=== PATIENT | male | born 1990 | race Caucasian/White ===

== ENCOUNTER 2022-02-28 20:08 | Emergency (ER) | payer MEDICAID ==
[~2022-02-28] VITALS: Ht 177.8 cm; Wt 90.7 kg
--- NOTE | 2022-02-28 20:13 | NUR ---
PT EMILY GUZMÁN. AMBULATED WITHOUT ASSISTANCE FROM EMS GURNEY TO ER BED 2
[2022-02-28 20:14] VITALS: BP 145/79
[2022-02-28] MEDS ORDERED: IBUPROFEN 800 MG TAB PO ONE (20:45)
[2022-02-28] MEDS ORDERED: LIDOCAINE MPF 1% 10 MG/ML VIAL INJ ONE (20:45)
[2022-02-28] MEDS ORDERED: cephALEXin 500 MG CAP PO ONE (20:45)
--- NOTE | 2022-02-28 21:00 | NUR ---
LAB AT BEDSIDE
[2022-02-28 21:12] LABS: BASOPHILS # (AUTO) 0.2 K/uL (0.00-0.22); BASOPHILS % (AUTO) 1.7 % (0.0-2.0); EOSINOPHILS # (AUTO) 0.2 K/uL (0-0.4); EOSINOPHILS % (AUTO) 2.3 % (0.0-4.0); HEMATOCRIT 37.9 % (36-52); HEMOGLOBIN 13.1 g/dL (12.0-18.0); LYMPHOCYTES % (AUTO) 10.4 % (20.5-51.1); MEAN CORPUSCULAR HEMOGLOBIN 29 pg (27-31); MEAN CORPUSCULAR HGB CONC 35 g/dL (33-37); MEAN CORPUSCULAR VOLUME 82.2 fL (80-94); MONOCYTES # (AUTO) 0.8 K/uL (0.8-1.0); NEUTROPHILS # (AUTO) 7.7 K/uL (1.8-7.7); NEUTROPHILS % (AUTO) 77.6 % (42.2-75.2); PLATELET COUNT (AUTO) 193 K/uL (140-450); RED BLOOD CELL COUNT(AUTO) 4.61 MIL/uL (4.20-6.10); RED CELL DISTRIBUTION WIDTH 13.3 % (11.6-13.7); WHITE BLOOD COUNT (AUTO) 9.9 K/uL (4.8-10.8)
[2022-02-28 21:49] LABS: ALBUMIN 3.5 g/dL (3.4-5.0); ANION GAP 8.8 (8-16); CARBON DIOXIDE 29.8 mmol/L (21-32); CREATININE 0.9 mg/dL (0.6-1.3); POTASSIUM 3.6 mmol/L (3.5-5.1); TOTAL BILIRUBIN 0.7 mg/dL (0.0-1.0)
--- NOTE | 2022-02-28 23:00 | NUR ---
31/M AAOX4, HOMELESS. BIBA C/O RIGHT LOWER LEG PAIN. PATIENT STATED THAT HE HAS A HX USING METH AND HEROIN WHILE REUSING NEEDLES. PATIENT STATED THAT PAIN IS 10/10 AND SHARP WHEN AMBULATING. LOWER LEG HAS REDNESS AND SOME SWELLING. PATIENT DENIES FEVER/SOB/CP/N/V/C/D AT THIS TIME. PATIENT PLACED IN A GOWN AND NONSLIP SOCKS. BED LOW AND LOCKED, REGINE SIDE RAILS UP FOR SAFETY. LIGHTS OFF AND COVERED FOR COMFORT. ALL NEEDS MET. PMHX DRUG ABUSE NKA
--- NOTE | 2022-02-28 23:45 | NUR ---
Dr. Euceda examining patient.
[2022-02-28] MEDS ORDERED: SULF-59 PO (23:49)
[2022-02-28] MEDS ORDERED: CEPH-588 PO (23:49)
[2022-02-28] MEDS ORDERED: IBUP-2218 PO (23:49)
[2022-02-28] MEDS ORDERED: SULFAMETH/TRIMETH DS 800/160MG 1 TAB PO ONE (23:50)
--- NOTE | 2022-03-01 01:25 | NUR ---
PATIENT RESTING IN BED, VSS, BED LOCKED AND LOW. REGINE SIDE RAILS UP FOR SAFETY. ALL NEEDS MET
--- NOTE | 2022-03-01 03:25 | NUR ---
PATIENT IN BED RESTING. BED LOW AND LOCKED. REGINE SIDE RAILS UP FOR SAFETY. ALL NEEDS MET.
[2022-03-01 04:48] VITALS: BP 121/59
--- NOTE | 2022-03-01 04:48 | NUR ---
Patient discharged with v/s stable. Written and verbal after care instructions given skin abscess and explained. Patient alert, oriented and verbalized understanding of instructions. Ambulatory with steady gait. All questions addressed prior to discharge. ID band removed. Patient advised to follow up with PMD. Rx of Keflex, Bactrium DS, and Ibuprofen given.
== END 2022-03-01 04:48 | disposition home or self-care (01) ==
LOC: MED 20:08
DX: L03.114 Cellulitis of left upper limb (principal); L02.611 Cutaneous abscess of right foot; Z79.1 Long term (current) use of non-steroidal anti-inflammatories (NSAID); Z79.2 Long term (current) use of antibiotics
CPT/HCPCS: 10060; 36415; 80053; 85025; 90471; 90715; 99285; J2001

== ENCOUNTER 2022-03-17 03:50 | Emergency (ER) | payer MEDICAID ==
[~2022-03-17] VITALS: Ht 180.3 cm; Wt 81.6 kg
[~2022-03-17 03:50] MED LIST: CEPH-588 PO; IBUP-2218 PO; SULF-59 PO
--- NOTE | 2022-03-17 04:00 | NUR ---
BIBA WITH C/O VOMITING X APPROX 30. ADMITS TO METH AND HEROINE USE, STATES HE THINKS THE DRUGS WERE LACED WITH VERSED. WAS SEEN HERE 2 WEEKS AGO FOR SIMILAR COMPLAINTS. IS MOANING, C/O NAUSEA.
[2022-03-17 04:01] VITALS: BP 127/72
[2022-03-17] MEDS ORDERED: HALOPERIDOL IM 5 MG/ML VIAL IM ONE (04:20)
[2022-03-17] MEDS ORDERED: ONDANSETRON 4 MG TAB PO ONE (04:20)
[2022-03-17] MEDS ORDERED: ceFAZolin 1,000 MG VIAL IM ONE (04:20)
[2022-03-17] MEDS ORDERED: diphenhydrAMINE 50 MG/ML VIAL IM ONE (04:20)
--- NOTE | 2022-03-17 06:38 | NUR ---
pt appears to be resting. equal rise and fall of chest wall. vss. all needs met at this time. bed locked in lowest position, side rails x2 for saftey.
--- NOTE | 2022-03-17 07:11 | NUR ---
Pt report given to pepe varma. Transfer of care at this time.
--- NOTE | 2022-03-17 07:18 | NUR ---
report received from pepe bustillos for transfer of care
--- NOTE | 2022-03-17 07:48 | NUR ---
PT RESTING IN BED WITH EYES CLOSED. NO SIGNS OF DISTRESS NOTED. EQUAL CHEST RISE AND FALL NOTED. 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 WILL CONTINUE TO MONITOR
[2022-03-17 08:58] VITALS: BP 94/45
== END 2022-03-17 08:55 | disposition home or self-care (01) ==
LOC: MED 03:50
DX: F19.10 Other psychoactive substance abuse, uncomplicated (principal); R11.2 Nausea with vomiting, unspecified; F12.90 Cannabis use, unspecified, uncomplicated; F14.90 Cocaine use, unspecified, uncomplicated; F15.90 Other stimulant use, unspecified, uncomplicated; Z79.899 Other long term (current) drug therapy
CPT/HCPCS: 96372; 99284; J0690; J1200; J1630; Q0162

== ENCOUNTER 2022-06-12 20:11 | Emergency (ER) | payer MEDICAID, OTHER ==
[~2022-06-12] VITALS: Ht 170.2 cm; Wt 83.9 kg
[2022-06-12 20:18] VITALS: BP 115/67
--- NOTE | 2022-06-12 20:18 | NUR ---
pt lewis als er bed 1
--- NOTE | 2022-06-12 21:40 | NUR ---
31 YO M BIBA F HOME W C/O HEROIN OVERDOSE. PT ADMITS TO METH AND HEROIN USE APPROX 4 HOURS AGO. OXYGEN 97% PMH: IV DRUG USE NKA
--- NOTE | 2022-06-12 21:50 | NUR ---
GAVE PT URINAL TO PROVIDE URINE
--- NOTE | 2022-06-12 22:07 | NUR ---
PROVIDED PT WITH TUNA SANDWICH AND 2 JUICES
[2022-06-12 22:20] LABS: BASOPHILS % (AUTO) 0.2 % (0.0-2.0); EOSINOPHILS % (AUTO) 0.4 % (0.0-4.0); HEMATOCRIT 40.5 % (36-52); HEMOGLOBIN 13.8 g/dL (12.0-18.0); LYMPHOCYTES # (AUTO) 0.8 K/uL (2.0-11.5); LYMPHOCYTES % (AUTO) 8.6 % (20.5-51.1); MEAN CORPUSCULAR HEMOGLOBIN 28 pg (27-31); MEAN CORPUSCULAR HGB CONC 34 g/dL (33-37); MEAN CORPUSCULAR VOLUME 83.3 fL (80-94); MONOCYTES # (AUTO) 0.7 K/uL (0.8-1.0); MONOCYTES % (AUTO) 8.2 % (1.7-9.3); NEUTROPHILS # (AUTO) 7.5 K/uL (1.8-7.7); PLATELET COUNT (AUTO) 174 K/uL (140-450); RED BLOOD CELL COUNT(AUTO) 4.86 MIL/uL (4.20-6.10); RED CELL DISTRIBUTION WIDTH 13.6 % (11.6-13.7)
[2022-06-12 22:44] LABS: ALBUMIN 3.5 g/dL (3.4-5.0); ANION GAP 11.6 (8-16); ASPARTATE AMINOTRANSFERASE 28 U/L (15-37); CARBON DIOXIDE 27.9 mmol/L (21-32); CHLORIDE 105 mmol/L (98-107); CREATININE 1.1 mg/dL (0.6-1.3); GFR ARICAN-AMERICAN 100 mL/min (>90); GLUCOSE 109 mg/dL (74-106); POTASSIUM 4.5 mmol/L (3.5-5.1); SODIUM SERUM 140 mmol/L (136-145); TOTAL BILIRUBIN 0.4 mg/dL (0.0-1.0); UREA NITROGEN, BLOOD 17 mg/dL (7-18)
[2022-06-12 22:55] LABS: SALICYLATE < 2.8 mg/dL (2.8-20.0)
[2022-06-12 23:16] LABS: NEUTROPHILS % (AUTO) 82.6 % (42.2-75.2)
--- NOTE | 2022-06-12 23:21 | NUR ---
PT URINATED ON SELF, SHEETS WERE CHANGED AND I PROVIDED PT WITH CLEAN GOWN
[2022-06-12 23:45] LABS: BARBITURATE, URINE NEGATIVE ng/ml (NEG <=200)
[2022-06-12 23:46] LABS: BENZODIAZEPINE, URINE NEGATIVE ng/mL (NEG <=200); CANNABINOID, URINE NEGATIVE ng/mL (NEG <=50); COCAINE, URINE NEGATIVE ng/mL (NEG <=300); OPIATE, URINE NEGATIVE ng/mL (NEG <=2000); PHENCYCLIDINE SCREEN,URINE NEGATIVE ng/mL (NEG <=25)
--- NOTE | 2022-06-13 00:40 | NUR ---
PATIENT APPEARS TO BE RESTING COMFORTABLY IN BED. VITAL SIGNS WITHIN NORMAL LIMITS. RESPIRATIONS EVEN AND UNLABORED.
--- NOTE | 2022-06-13 03:13 | NUR ---
PATIENT APPEARS TO BE RESTING COMFORTABLY IN BED. VITAL SIGNS WITHIN NORMAL LIMITS. RESPIRATIONS EVEN AND UNLABORED.
--- NOTE | 2022-06-13 04:14 | NUR ---
PATIENT APPEARS TO BE RESTING COMFORTABLY IN BED. VITAL SIGNS WITHIN NORMAL LIMITS. RESPIRATIONS EVEN AND UNLABORED.
[2022-06-13 09:00] VITALS: BP 135/72
--- NOTE | 2022-06-13 09:00 | NUR ---
Patient discharged with v/s stable. Written and verbal after care instructions given and explained. Patient verbalized understanding. Ambulatory with steady gait. All questions addressed prior to discharge. Advised to follow up with PMD.
== END 2022-06-13 09:00 | disposition home or self-care (01) ==
LOC: MED 20:11
DX: F19.129 Other psychoactive substance abuse with intoxication, unspecified (principal); F11.90 Opioid use, unspecified, uncomplicated; F12.90 Cannabis use, unspecified, uncomplicated; F15.90 Other stimulant use, unspecified, uncomplicated; F17.210 Nicotine dependence, cigarettes, uncomplicated; Z72.89 Other problems related to lifestyle
CPT/HCPCS: 36415; 80053; 80305; 85025; 93005; 99285; G0480; G0482